=== PATIENT | female | born 1965 | race Caucasian/White ===

== ENCOUNTER 2024-09-23 01:41 | Emergency (ER) | payer BC, SELFPAY ==
[2024-09-23 01:44] VITALS: BP 151/71
--- NOTE | 2024-09-23 03:22 | ED.GENMED ---
History of Present Illness
General
Chief Complaint: Eye Problems
Source: patient
Exam Limitations: none
Time Seen by Provider: 09/23/24 02:44
Nursing documentation reviewed up to this point in time: agreed with
History of Present Illness
History of Present Illness:
Patient presents with right eye pain after her cat bumped her eye earlier in the evening. She feels that her contact lenses do not place. She states that her vision is unaffected causing her believe that the contact lenses still there. She states
that she has a feeling of foreign body in her eye. Tetanus shot is within the last few years.
Review of Systems
Review of Systems
Allergies reviewed?: Yes
All Other Systems: ROS reviewed and negative except as documented in HPI and ROS
Constitutional: Reports no symptoms
EENT: Reports other (Eye pain)
Respiratory: Reports no symptoms
Cardiac: Reports no symptoms
ABD/GI: Reports no symptoms
: Reports no symptoms
Musculoskeletal: Reports no symptoms
Skin: Reports no symptoms
Neurological: Reports no symptoms
Endocrine: Reports no symptoms
Hematologic/Lymphatic: Reports no symptoms
Psychiatric: Reports no symptoms
Phy Exam
General Physical Exam
General Presentation: well appearing and mild distress
General age: appears stated age
Eye Exam
Eye Exam: PERRL, EOMI and other (No evidence of contact lens. Using magnification we did not see the lens. There is corneal abrasion as indicated by uptake by the fluorescein.)
Eye Exam General: PERRL: bilateral and EOM intact: bilateral
Cornea Exam: abrasion: Right
Course
Orders/Labs/Results
Orders:
Orders
09/23/24 03:16
Ciprofloxacin HCl [Ciloxan 0.3% Ophthalmic Solution] See Dose Instructions OPHTH NOW STA
Vital Signs
Initial and Last Documented VS:
Initial Vital Signs
Temp Pulse Resp BP Pulse Ox
98.0 F 71 18 151/71 99
09/23/24 01:44 09/23/24 01:44 09/23/24 01:44 09/23/24 01:44 09/23/24 01:44
Last Documented Vital Signs
Temp Pulse Resp BP Pulse Ox
98.0 F 71 18 151/71 99
09/23/24 01:44 09/23/24 01:44 09/23/24 01:44 09/23/24 01:44 09/23/24 01:44
*Critical Care Note
Total Time (30-74mins, 75-104mins- exclusive of procedures): Not Applicable
ED Attending Note
-
Portions of this chart may have been created with voice recognition software.� Occasional wrong word or��sound alike� substitutions may have occurred due to the inherent limitations of voice recognition software.
Discharge Plan
Departure
Patient Disposition: Home (Routine Discharge)
Date of Disposition: 09/23/24
Time of Disposition: 03:25
Patient with high blood pressure during this ER visit?: Yes
Discharge Problem:
Abrasion, corneal
Instructions: Corneal Abrasion (DC), How to Use Eye Drops, Foreign Body in Eye (DC)
Referrals:
Eric Lopez MD [Active] - As needed
Activity Restrictions/Additional Instructions:
CIPRO: 1 DROP LEFT EYE EVERY 4 HOURS WHILE AWAKE
It was a pleasure meeting you and taking part in your care. We hope for your continued healing and wellness.
Please read discharge instructions in their entirety. However, they are for general education and may not describe your exact diagnosis at discharge. Information on your ER visit and medical conditions were discussed with you along with appropriate
follow up information...
If indicated, please take your medications as instructed and indicated on discharge paperwork.
Please schedule a follow up appointment as directed. Call to schedule an appointment
Please return to the emergency department with ANY change in, persisting, or worsening of symptoms. If any of your symptoms do not improve, or persist, or become more severe within 6-12 hours, please return to the emergency department for further
care.
Please return to the emergency department if you develop a headache, neck pain/stiffness, fever greater than 100.4F, chest pain, shortness of breath, persistent nausea, vomiting, slurred speech, difficulty walking, numbness/tingling, weakness, signs
of infection or any other symptoms that are worrisome to you.
If you have any questions or concerns please do not hesitate to call the Hospital at or E-mail me directly at [email or web address]
Interventions
Interventions:
*Risk Screen - Suicide Last Done: 09/23/24 01:44
*General Assessment Last Done: 09/23/24 01:44
*Neglect/Abuse Screening Last Done: 09/23/24 01:44
ED- Fall Risk Assessment Last Done: 09/23/24 02:25
*ED COVID-19 Vaccine History Last Done: 09/23/24 02:25
Discharge Date and Time
Print Language: OCCITAN
[2024-09-23] MEDS: CILOXAN 0.3% OPHTHALMIC SOLUTION 1 DROP OPHTH (04:27)
[2024-09-23 04:29] VITALS: BP 133/79
== END 2024-09-23 04:31 | disposition home or self-care (01) ==
LOC: EMR 01:41
PROVIDERS: EMERGENCY PHYSICIAN Student in an Organized Health Care Education/Training Program
DX: S05.01XA Injury of conjunctiva and corneal abrasion without foreign body, right eye, initial encounter (principal); W55.09XA Other contact with cat, initial encounter
CPT/HCPCS: 99283

== ENCOUNTER → 2025-09-24 13:48 | Outpatient (REF) | payer BC, SELFPAY | LOC: WDC 13:48 | PROVIDERS: ATTENDING PHYSICIAN Internal Medicine | DX: Z12.31 Encounter for screening mammogram for malignant neoplasm of breast (principal) | CPT/HCPCS: 77063; 77067 ==